=== PATIENT | male | born 1935 | race Caucasian/White ===

== ENCOUNTER 2017-01-06 15:25 | Inpatient (IN) | payer OTHER ==
[2017-01-06] MEDS ORDERED: ASPIRIN 81 MG CHEWABLE TAB PO ONE (15:36)
--- NOTE | 2017-01-06 15:38 | CPEKG ---
Heart Rate: 62 RR Interval: 968 P-R Interval: 160 QRSD Interval: 76 QT Interval: 420 QTC Interval: 427 P Delton: 32 QRS Delton: 10 T Wave Delton: 104 EKG Severity - ABNORMAL ECG - EKG Impression: SINUS RHYTHM EKG Impression: MULTIPLE VENTRICULAR PREMATURE COMPLEXES EKG Impression: LVH WITH SECONDARY REPOLARIZATION ABNORMALITY Electronically Signed By: Mary Lin 06-Jan-2017 22:38:28
[2017-01-06 15:48] LABS: % IMMATURE GRANULYOCYTES 0.1 % (0.0-1.1); ABSOLUTE IMMATURE GRANULOCYTES 0.01 10^3/uL (0.00-0.10); ADD DIFF? NO; ADD MORPH? NO; ADD SCAN? NO; ATYPICAL LYMPHOCYTE FLAG 0 (0-99); FRAGMENT RBC FLAG 0 (0-99); HEMATOCRIT 41.6 % (40.0-51.0); LEFT SHIFT FLG 0 (0-99); LIPEMIA HEMOLYSIS FLAG 90 (0-99); MEAN CELL HEMOGLOBIN 32.1 pg (27.9-34.1); MEAN CELL HEMOGLOBIN CONCENTR. 36.1 g/dL (32.4-36.7); MEAN CELL VOLUME 88.9 fL (81.5-99.8); MEAN PLATELET VOLUME 9.8 fL (8.7-11.7); PLATELET CLUMPS FLAG 10 (0-99); PLATELET COUNT 139 10^3/uL (150-400); RED BLOOD CELL COUNT 4.68 10^6/uL (4.40-6.38); RED CELL DISTRIBUTION WIDTH 12.6 % (11.5-15.2)
--- NOTE | 2017-01-06 15:49 | EDPHY ---
H & P Stated Complaint: chest pressure Time Seen by Provider: 01/06/17 15:28 HPI/ROS: CHIEF COMPLAINT: Chest pain History by patient HISTORY OF PRESENT ILLNESS: 81-year-old man with a remote history of WI and history of high cholesterol presents complaining of intermittent episodes of exertional pressure-like chest pain. He says over the past few weeks when he rides his bike, particularly up hill or other heavy work loads he gets the pressure feeling on the central left part of his chest which is associated with some shortness of breath but no diaphoresis or nausea or left arm pain. Pain typically goes away after rest. Yesterday he had episode which forced him to get off his bike and walk the bike up hill. Can't remember what kind of symptoms he had with his prior heart attack. He quit smoking almost 60 years ago. He does take medicine for his cholesterol. He takes an aspirin a day but did not take 1 today. He denies any associated leg swelling. He is currently asymptomatic. He decided to seek medical attention today because he has several long bike rides planned next week and he wants to make sure he is okay. REVIEW OF SYSTEMS: As in HPI, and all other systems reviewed and are negative Source: Patient - Personal History Tetanus Vaccine Date: 2009 - Medical/Surgical History Other PMH: WI 40 years ago - Physical Exam Exam: General Appearance: Alert, elderly, pleasant. Eyes: Pupils equal and round no pallor or injection. ENT, Mouth: Mucous membranes moist. Respiratory: Normal, effort, There are no retractions, lungs are clear to auscultation. Cardiovascular: Regular rate and rhythm. No S1, S2, murmurs gallops rubs appreciated Gastrointestinal: Abdomen is soft and nontender, no masses, bowel sounds normal. Neurological: Awake, alert and oriented x 3, no pronator drift, normal gait, no pronator drift Skin: Warm and dry, no rashes. Musculoskeletal: Neck is supple nontender. Extremities are symmetrical, full range of motion. Psychiatric: Patient has normal affect, there is no agitation. Constitutional: Initial Vital Signs Temperature (C) 36.8 C 01/06/17 15:34 Heart Rate 63 01/06/17 15:34 Respiratory Rate 16 01/06/17 15:34 Blood Pressure 157/75 H 01/06/17 15:34 O2 Sat (%) 95 01/06/17 15:34 O2 Delivery Mode Room Air Allergies/Adverse Reactions: cyclobenzaprine [From Flexeril] Allergy (Verified 01/06/17 17:24) haloperidol [From Haldol] Allergy (Verified 01/06/17 17:23) methocarbamol [From Robaxin] Allergy (Verified 01/06/17 17:24) Home Medications: Medication Instructions Recorded Aspirin EC [Aspirin EC 81 mg (*)] 81 mg PO DAILY 01/06/17 Cholecalciferol Vit D3 [Vitamin D3 1,000 units PO DAILY 01/06/17 (*)] Herbals/Supplements -Info Only 1 ea PO DAILY 01/06/17 Levothyroxine [Synthroid 50 mcg 50 mcg PO DAILY06 01/06/17 (*)] Lovastatin 40 mg PO HS 01/06/17 Multivitamins [Multivitamin (*)] 1 each PO DAILY 01/06/17 Nitroglycerin [Nitrostat 0.4 mg 0.4 mg SL AD PRN 01/06/17 (*)] clonazePAM [klonoPIN (*)] 1 mg PO HS 01/06/17 Medical Decision Making - Diagnostics Imaging Results: Imaging Impressions Chest X-Ray 01/06/17 15:44 Impression: Hyperexpanded lungs suggesting COPD. ED Course/Re-evaluation: 81-year-old man presents with exertion chest pain concerning for cardiac angina. Patient was asymptomatic in the emergency department. He was given he an aspirin. Initial ECG showed normal sinus rhythm at a rate of 60 with diffusely flattened T-waves and ST segment depressions in the lateral leads concerning for ischemia but no evidence of STEMI. Chest x-ray was obtained which showed nothing acute. Labs were notable for elevated troponin consistent with acute non-STEMI. I discussed the case with William at nurse practitioner civil engineering professional for cardiology who discussed the case with Dr. Grajeda. Patient was started on IV heparin drip and given metoprolol 12.5 mg per Cardiology. Cardiology requested transfer for angiogram at this evening. I discussed the lab results and diagnosis with the patient and also with his over the phone. The patient was transferred to the main hospital for further evaluation and treatment. Total critical care time was 35 minutes, exclusive of procedures. - Data Points Laboratory Results: Laboratory Results 01/06/17 15:42 01/06/17 15:42 01/06/17 01/06/17 01/06/17 15:42 15:42 15:40 WBC 7.40 10^3/uL 10^3/uL (3.80-9.50) RBC 4.68 10^6/uL 10^6/uL (4.40-6.38) Hgb 15.0 g/dL g/dL (13.7-17.5) Hct 41.6 % % (40.0-51.0) MCV 88.9 fL fL (81.5-99.8) MCH 32.1 pg pg (27.9-34.1) MCHC 36.1 g/dL g/dL (32.4-36.7) RDW 12.6 % % (11.5-15.2) Plt Count 139 10^3/uL L 10^3/uL (150-400) MPV 9.8 fL fL (8.7-11.7) Neut % (Auto) 68.8 % % (39.3-74.2) Lymph % (Auto) 21.2 % % (15.0-45.0) [place] % (Auto) 5.5 % % (4.5-13.0) Eos % (Auto) 3.6 % % (0.6-7.6) Baso % (Auto) 0.8 % % (0.3-1.7) Nucleat RBC Rel Count 0.0 % % (0.0-0.2) Absolute Neuts (auto) 5.08 10^3/uL 10^3/uL (1.70-6.50) Absolute Lymphs (auto) 1.57 10^3/uL 10^3/uL (1.00-3.00) Absolute Monos (auto) 0.41 10^3/uL 10^3/uL (0.30-0.80) Absolute Eos (auto) 0.27 10^3/uL 10^3/uL (0.03-0.40) Absolute Basos (auto) 0.06 10^3/uL 10^3/uL (0.02-0.10) Absolute Nucleated RBC 0.00 10^3/uL 10^3/uL (0-0.01) Immature Gran % 0.1 % % (0.0-1.1) Immature Gran # 0.01 10^3/uL 10^3/uL (0.00-0.10) PT 13.0 SEC SEC (12.0-15.0) INR 1.01 (0.83-1.16) APTT 30.8 SEC SEC (23.0-38.0) Sodium 142 mEq/L mEq/L (134-144) Potassium 3.9 mEq/L mEq/L (3.5-5.2) Chloride 102 mEq/L mEq/L (97-110) Carbon Dioxide 28 mEq/l mEq/l (22-31) Anion Gap 12 mEq/L mEq/L (8-16) BUN 13 mg/dL mg/dL (7-23) Creatinine 1.2 mg/dL mg/dL (0.7-1.3) Estimated GFR 58 Glucose 89 mg/dL mg/dL (70-100) Calcium 8.8 mg/dL mg/dL (8.5-10.4) Magnesium 1.9 mg/dL mg/dL (1.6-2.3) Troponin I 0.629 ng/mL H ng/mL (0-0.034) Medications Given: Discontinued Medications Aspirin (Aspirin) 324 mg PO EDNOW ONE Stop: 01/06/17 15:37 Last Admin: 01/06/17 15:41 Dose: 324 mg Clopidogrel Bisulfate (Plavix) 600 mg PO ONCE ONE Stop: 01/06/17 20:24 Last Admin: 01/06/17 21:44 Dose: Not Given Heparin Sodium (Porcine) (Heparin Injection) 0 unit IVP EDNOW ONE PRN Reason: Protocol Stop: 01/06/17 16:54 Last Admin: 01/06/17 17:30 Dose: 3,700 units Heparin Sodium (Porcine) (Heparin 50 Units/Ml (Premix)) 500 mls @ 0 mls/hr IV EDNOW ONE; Per Protocol PRN Reason: Protocol Stop: 01/06/17 16:54 Last Admin: 01/06/17 17:32 Dose: 500 mls Metoprolol Succinate (Toprol Xl) 12.5 mg PO EDNOW ONE Stop: 01/06/17 17:20 Last Admin: 01/06/17 17:38 Dose: 12.5 mg Departure - Departure Disposition: [facility] Clinical Impression: Acute coronary syndrome Condition: Fair
[2017-01-06 16:00] LABS: ANION GAP 12 mEq/L (8-16); CALCIUM 8.8 mg/dL (8.5-10.4); CARBON DIOXIDE 28 mEq/l (22-31); CHLORIDE 102 mEq/L (97-110); CREATININE 1.2 mg/dL (0.7-1.3); GLOMERULAR FILTRATION RATE 58; GLUCOSE 89 mg/dL (70-100); MAGNESIUM 1.9 mg/dL (1.6-2.3); POTASSIUM 3.9 mEq/L (3.5-5.2); SODIUM 142 mEq/L (134-144)
[2017-01-06 16:12] LABS: TROPONIN I 0.629 ng/mL (0-0.034)
[2017-01-06] MEDS ORDERED: HEPARIN/DEXTROSE 500 ML IV ONE (16:53)
[2017-01-06] MEDS ORDERED: HEPARIN 10,000 UNIT/10 ML MDV IVP ONE (16:53)
[2017-01-06 17:01] LABS: INR 1.01 (0.83-1.16)
[2017-01-06 17:02] LABS: APTT 30.8 SEC (23.0-38.0)
[2017-01-06] MEDS ORDERED: LIDOCAINE 1% 300 MG/30 ML SDV ONE (17:10)
[2017-01-06] MEDS ORDERED: IOPAMIDOL (ISOVUE-370) 150 ML BTL IV ONE ×2 (17:11→17:28)
[2017-01-06] MEDS ORDERED: MIDAZOLAM 2 MG/2 ML VIAL ONE (17:11)
[2017-01-06] MEDS ORDERED: HEPARIN 10,000 UNIT/10 ML MDV ONE (17:11)
[2017-01-06] MEDS ORDERED: fentaNYL 100 MCG/2 ML INJ ONE (17:11)
[2017-01-06] MEDS ORDERED: VERAPAMIL 5 MG/2 ML VIAL ONE (17:11)
[2017-01-06] MEDS ORDERED: METOPROLOL SUCCINATE XR 25 MG TAB PO ONE (17:19)
[2017-01-06] MEDS ORDERED: METOPROLOL TARTRATE 25 MG TAB ONE (17:36)
[2017-01-06] MEDS ORDERED: NITROGLYCERIN 1,500 MCG/15 ML VIAL MISC ONE (19:36)
[2017-01-06] MEDS ORDERED: BIVALIRUDIN 250 MG/5 ML VIAL IV ONE (19:37)
[2017-01-06] MEDS ORDERED: CLOPIDOGREL BISULFATE 75 MG TAB ONE (20:21)
[2017-01-06] MEDS ORDERED: HYDROCODONE/APAP 5/325 TAB PO PRN (20:23)
[2017-01-06] MEDS ORDERED: TEMAZEPAM 15 MG CAP PO PRN (20:23)
[2017-01-06] MEDS ORDERED: ACETAMINOPHEN 325 MG TAB PO PRN (20:23)
[2017-01-06] MEDS ORDERED: ONDANSETRON DISINTEGRATING 4 MG TAB PO PRN (20:23)
[2017-01-06] MEDS ORDERED: LORazepam 2 MG/ML INJ IVP PRN (20:23)
[2017-01-06] MEDS ORDERED: ATROPINE SULFATE 1 MG/10 ML SYR IVP PRN (20:23)
[2017-01-06] MEDS ORDERED: NITROGLYCERIN 0.4 MG BTL SL PRN (20:23)
[2017-01-06] MEDS ORDERED: CLOPIDOGREL BISULFATE 75 MG TAB PO ONE (20:23)
[2017-01-06] MEDS ORDERED: ONDANSETRON 4 MG/2 ML VIAL IVP PRN (20:23)
[2017-01-06] MEDS ORDERED: NS 1,000 ML IV SCH (20:30)
--- NOTE | 2017-01-06 20:45 | GHP ---
[f rep st] HISTORY AND PHYSICAL DATE OF ADMISSION: 01/06/2017 CHIEF COMPLAINT: Chest pain. 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 He presente d to the emergency department for a complaint of chest discomfort which began sometime within the la st 2 weeks to 1 month. He states that with riding his bike uphill he has developed chest pressure a nd tightness between his nipples that is associated with some shortness of breath. He cannot tell i f this discomfort is being caused by his heart or primary problem with his lungs. He has not recent ly traveled. Yesterday, he was riding up a hill and the discomfort became so severe, he was forced to get off his bike and walk it up the remainder of the hill. PAST MEDICAL HISTORY: Significant for heart attack that occurred when he was in his early 50s and w as treated at the [facility]. He is a former smoker but quit 60 years ago. He has a history of hypercholesterolemia and takes medication for that problem. Past medical history significant for prior myocardial infarction and hypercholesterolemia. He denies a history o f diabetes, but does admit to hypothyroidism. He has had a history of melanoma, status post excisio n, and has also developed some problems with his memory and feels he may have early Alzheimer's or s ome other form of cognitive disorder. CURRENT MEDICATIONS: Aspirin 81 mg daily, atorvastatin, Lipitor 40 mg daily, glucosamine sulfate, l evothyroxine 50 mcg daily, nitroglycerin as needed, Metamucil 5.85 g p.o. daily and Klonopin 1 mg p. o. daily. ALLERGIES: He has a history of allergy to cyclobenzaprine, Flexeril, haloperidol and methocarbamol. PHYSICAL EXAMINATION: GENERAL: He appears awake and alert. He is oriented to person and place, be ing a hospital. Does not know today's date. NECK: Reveals no JVD. Does have a faint carotid brui t on the right side. HEART: Normal S1, S2 with a systolic murmur consistent with tricuspid regurgi tation. He also has a summation gallop sound. LUNGS: Clear with decreased air movement bilaterall y. ABDOMEN: Benign with positive bowel sounds. It is nondistended and nontender. EXTREMITIES: W arm, dry and well perfused without significant peripheral edema. His femoral pulses are intact. DIAGNOSTIC STUDIES: EKG reveals sinus rhythm with frequent and bigeminal PVCs. There is a nonspeci fic ST-T abnormality with diffuse T-wave flattening and no acute infarct pattern is identified. LABORATORY DATA: His troponin was elevated and creatinine was recorded 1.2. BUN and creatinine wer e 13 and 1.2. As I mentioned, blood glucose is 89. White count 7.4, hemoglobin and hematocrit 15 a nd 41.6, platelet count of 139. Troponin I is 0.629 ng/mL. DIAGNOSIS: Unstable angina with subendocardial myocardial infarction by troponin. The patient, Shelly masterson, would benefit from urgent, if not emergent, cardiac catheterization given his complex ventri cular ectopy, stuttering pattern of chest discomfort and elevated troponin. I discussed the risks, benefits, and alternatives of this course of action with the patient who understands, willing to pro ceed as planned. /[id number]/MODL
[2017-01-06] MEDS: METOPROLOL TARTRATE 25 MG TAB PO SCH (21:39)
--- NOTE | 2017-01-06 22:14 | CPEKG ---
Heart Rate: 55 RR Interval: 1091 P-R Interval: 180 QRSD Interval: 78 QT Interval: 464 QTC Interval: 444 P Mcconnells: 70 QRS Mcconnells: 5 T Wave Mcconnells: 58 EKG Severity - ABNORMAL ECG - EKG Impression: SINUS RHYTHM EKG Impression: MULTIPLE VENTRICULAR PREMATURE COMPLEXES Electronically Signed By: Rajesh Huizar 07-Jan-2017 12:22:47
[2017-01-07 05:38] LABS: % IMMATURE GRANULYOCYTES 0.4 % (0.0-1.1); ABSOLUTE IMMATURE GRANULOCYTES 0.03 10^3/uL (0.00-0.10); ADD DIFF? NO; ADD MORPH? NO; ADD SCAN? NO; ATYPICAL LYMPHOCYTE FLAG 0 (0-99); FRAGMENT RBC FLAG 0 (0-99); HEMATOCRIT 40.4 % (40.0-51.0); HEMOGLOBIN 14.4 g/dL (13.7-17.5); LEFT SHIFT FLG 0 (0-99); LIPEMIA HEMOLYSIS FLAG 90 (0-99); MEAN CELL HEMOGLOBIN 32.1 pg (27.9-34.1); MEAN CELL HEMOGLOBIN CONCENTR. 35.6 g/dL (32.4-36.7); MEAN PLATELET VOLUME 10.5 fL (8.7-11.7); PLATELET CLUMPS FLAG 20 (0-99); PLATELET COUNT 114 10^3/uL (150-400); RED BLOOD CELL COUNT 4.49 10^6/uL (4.40-6.38); RED CELL DISTRIBUTION WIDTH 12.4 % (11.5-15.2)
--- NOTE | 2017-01-07 06:06 | CPIP ---
[f rep st] INVASIVE CARDIAC PROCEDURE DATE OF PROCEDURE: 01/06/2017 PROCEDURE PERFORMED: 1. Selective coronary angiography. 2. Left heart catheterization. 3. Left ventriculogram. 4. Percutaneous transluminal coronary angioplasty and stent placement of the circumflex obtuse roxanne inal with the use of a 2.75 x 28 Synergy drug-eluting stent. 5. Angio-Seal arteriotomy repair. COMPLICATIONS: None. INDICATIONS/APPROPRIATE USE CRITERIA: The patient has [place] Heart Association class 3 symptoms o f heart failure and CCS class 3 symptoms of angina with elevated troponin consistent with a subendoc ardial myocardial infarction. PROCEDURE IN DETAIL: After informed consent was obtained, n.p.o. status was confirmed, the region o f the right groin was cleaned, prepped and draped in sterile fashion. Modified Seldinger technique was used to place a 6-Portuguese sheath to the right common femoral artery. The patient then underwent the previously mentioned diagnostic procedure with the use of a JL4 and JR4 coronary catheters, as w ell as a 6-Portuguese pigtail catheter. Standard wire exchange technique was utilized for all catheter exchanges. The left main coronary lumen was approximately 5 mm in size and bifurcates into an LAD and circumfle x system. The circumflex vessel has a 50% ostial obstruction and gives rise to a posterolateral tyrone tricular branch. The largest obtuse marginal branch reveals ZOHAIB-1 flow with a 99% obstruction with haziness consistent with a fresh thrombus. The LAD arises in its usual location and has diffuse thien derrick irregularity proximally, maximal luminal stenosis approximately 30%. There is ZOHAIB-3 flow to a distal and apical LAD. No flow-limiting obstruction of the LAD proper diagonal or septal circulat ion is identified. The right coronary artery is dominant giving rise to a posterior descending and posterolateral ventricular branch. Again luminal irregularity consistent with underlying atheroscle rosis is present. Maximal luminal stenosis approximately 40% just prior to an acute marginal branch . Collateral flow from the right to the left system is not identified. The patient underwent left heart catheterization demonstrating an elevated left ventricular end-savage tolic pressure measured at 24 mmHg. The patient underwent left ventriculogram in the ZAMORA projection , demonstrating preserved left ventricular systolic function. Ejection fraction 65% with basal infe rior hypokinesis. Visualized portion of the thoracic aorta is normal in caliber without josey disse ction or aneurysm. There were 3 sinuses of Valsalva most consistent with a trileaflet aortic valve. Because of some leak around the 6-Portuguese sheath, a 6-Portuguese sheath was upsized to a 7-Portuguese sheath. A 7-Portuguese 3.5 EBU catheter was used for guide catheter support. A 0.014 coronary intuition wire was advanced under direct fluoroscopic guidance across the lesion in question. It was ballooned ope n with a 2.0 x 12 lesion in question. There was evidence of ZOHAIB-0 flow after placement of the wire indicating just how severe the blockage was known to be. The vessel was then ballooned open with a 2.0 x 12 balloon followed by secondary stenting with a 2.75 x 28 Synergy drug-eluting stent deploye d at a maximum pressure of 12-14 atmospheres with excellent angiographic results, 0% residual stenos is status post PTCA and stent placement with excellent and ZOHAIB-3 flow into the distal vessel post b alloon angioplasty and stent implantation. Patient tolerated the procedure well and underwent a suc cessful Angio-Seal arteriotomy repair. IMPRESSION: Successful balloon angioplasty and stent implantation for indication of subendocardial myocardial infarction. /[id number]/MODL
[2017-01-07 06:15] LABS: ALBUMIN 3.2 g/dL (3.5-5.0); ANION GAP 8 mEq/L (8-16); ASPARTATE AMINOTRANSFERASE 31 IU/L (17-59); BILIRUBIN,TOTAL 1.1 mg/dL (0.1-1.4); CALCIUM 9.1 mg/dL (8.5-10.4); CARBON DIOXIDE 24 mEq/l (22-31); CHLORIDE 105 mEq/L (97-110); CREATININE 1.2 mg/dL (0.7-1.3); GLOMERULAR FILTRATION RATE 58; GLUCOSE 81 mg/dL (70-100); LACTATE DEHYDROGENASE 381 IU/L (313-618); MAGNESIUM 1.9 mg/dL (1.6-2.3); SODIUM 137 mEq/L (134-144)
[2017-01-07 07:49] LABS: CREATINE KINASE-MB FRACTION 4.19 ng/mL (0-3.19)
[2017-01-07 08:28] LABS: CK-MB INTERPRETATION POSITIVE (NEGATIVE)
[2017-01-07] MEDS ORDERED: CLOPIDOGREL BISULFATE 75 MG TAB PO SCH (09:00)
[2017-01-07] MEDS ORDERED: ASPIRIN EC 325 MG TAB PO SCH (09:00)
[2017-01-07] MEDS ORDERED: ATORVASTATIN CALCIUM 40 MG TAB PO SCH (09:00)
[2017-01-07] MEDS: METOPROLOL TARTRATE 25 MG TAB PO SCH (09:12)
--- NOTE | 2017-01-07 09:47 | CPEKG ---
Heart Rate: 66 RR Interval: 909 P-R Interval: 164 QRSD Interval: 74 QT Interval: 428 QTC Interval: 449 P Pyrites: 53 QRS Pyrites: 25 T Wave Pyrites: -62 EKG Severity - ABNORMAL ECG - EKG Impression: SINUS RHYTHM Electronically Signed By: Heri Fisher 07-Jan-2017 15:39:15
[2017-01-07 11:58] VITALS: TEMP 97.9
[2017-01-07 16:24] VITALS: BP 129/69; PULSE 56; RESP 18; O2SAT 95
--- NOTE | 2017-01-09 05:21 | GDS ---
[f rep st] DISCHARGE SUMMARY ADMITTING DIAGNOSES: 1. Chest pain. 2. Subendocardial myocardial infarction. 3. Early-onset Alzheimer's. DISCHARGE DIAGNOSES: 1. Subendocardial myocardial infarction. 2. Coronary artery disease with stent placed to the circumflex obtuse marginal. 3. Early-onset Alzheimer's. HOSPITAL COURSE: This gentleman presented to the emergency room on January 06, 2017, with complaint of chest pain that has been waxing and waning over the past 2 weeks to 1 month. He has noted it while out riding his bike. On January 05, 2017, he experienced severe chest pain while riding his bike up h ill and presented to the emergency room for evaluation. His initial EKG showed a regular sinus rhyt hm with frequent PVCs, nonspecific ST/T-wave abnormalities with diffuse T-wave flattening. There wa s no acute infarct pattern. His troponin was 0.629. Dr. Grajeda evaluated him and took him to the psychiatric labor/excavator where he did find obstructive disease in the circumflex OM and a drug-eluting Synerg y stent was placed with no complications. He then was taken to PCU for overnight evaluation where marcello hamm has done well. He has experienced some confusion, likely related to his early onset Alzheimer's. His has been at his side and is very supportive and understanding of his confusion episodes. He was evaluated by PT/OT with recommendation for neurological consult due to his confusion. Clint schilling, after speaking with his , he has had a neurological consult 1 year ago. She does agree to diaz ve him seen by his primary care physician, again, and have him re-evaluated for the degree of Alzhei kendell's at this time. His groin site is intact with no bleeding. Groin care instructions were review ed at length with his and with him. His does have a good understanding and knows to watch for bleeding and to avoid heavy lifting, pushing, pulling for 1 week. His feels completely se cure about taking him home and caring for him. She is asked to call our office, should she have any concerns about any chest discomfort or unusual symptoms. At this time, he currently is stable for discharge. ALLERGIES: He is allergic to cyclobenzaprine, haloperidol, methocarbamol. MEDICATIONS: Plavix 75 mg daily; aspirin enteric coated 325 mg daily; Tylenol 325 mg 1-2 tablets ev marci 4 hours as needed for pain, not to exceed 3 g daily; metoprolol tartrate 12.5 mg b.i.d.; levothy roxine 50 mcg daily; multivitamin 1 daily; Klonopin 1 mg at bedtime; lovastatin 40 mg at bedtime, Ni trostat 0.4 mg sublingual as needed for pain; vitamin D 1,000 units daily; herbal supplements 1 neida y. PHYSICAL EXAMINATION: VITAL SIGNS: On day of discharge, blood pressure 129/69, heart rate 56 and r egular, oxygen saturation 95%, temperature 36.6 Celsius. EKG showed a normal sinus rhythm with no a rrhythmias. HEART: Rate regular. No murmurs, rubs, gallops. LUNG SOUNDS: Clear to auscultation. No wheezes, rales, or rhonchi. Peripheral pulses are 2+ bilaterally with no edema. Right groin s ite is intact with no bleeding, induration, or pain. Very mild ecchymosis was noted at site. DISCHARGE PLAN: 1. He will follow up in 1 week at [facility] with Marycruz Booth, nurse practitioner. 2. Groin site precautions, including no heavy lifting, pushing, pulling for 1 week; no tub bath for 1 week. 3. Should the groin site bleed, he is to hold heavy pressure continuously and go to the [facility]. His does understand these instructions. 4. He is to keep his bowels soft to avoid bearing down over the next week. He can safely take Seno forrest, if needed. 5. He is asked to call [facility], should he have any chest discomfort, shortness of breath, or other cardiac concerns. His understands clearly these instructions. The patient admits that a t times he feels confused and will rely on his for discharge instructions to [facility]. It is recommended that he participate in cardiac rehab. At this time, he currently is stable for discharge. /[id number]/MODL
== END 2017-01-07 17:42 | disposition home or self-care (01) | DRG 229 ==
LOC: CED 15:25 → F2W 16:30 → CED 18:25 → OBSVTOIN 20:19 → F2W 21:10
PROVIDERS: ADMIT Internal Medicine Cardiovascular Disease; ATTEND Internal Medicine Cardiovascular Disease
DX: I21.4 Non-ST elevation (NSTEMI) myocardial infarction (principal); I25.110 Atherosclerotic heart disease of native coronary artery with unstable angina pectoris; I10 Essential (primary) hypertension; G30.0 Alzheimer's disease with early onset; F02.80 Dementia in other diseases classified elsewhere, unspecified severity, without behavioral disturbance, psychotic disturbance, mood disturbance, and anxiety
CPT/HCPCS: 71020-PO; 80048-PO; 83735-PO; 84484-PO; 85025-PO; 85610-PO; 85730-PO; 96365; 97161-GP; 97165-GO; C1725; C1760; C1769; C1874; C1887; C9606; G8987-GO-CI; G8988-GO-CI; G8989-GO-CI; J0583; J1644; J2250; J3010; Q9967

== ENCOUNTER → 2017-04-09 | Outpatient (CLI) | payer OTHER | LOC: SBRMNEURO 21:00 | PROVIDERS: ATTEND Physician Assistant Medical | DX: G47.33 Obstructive sleep apnea (adult) (pediatric) (principal); G47.52 REM sleep behavior disorder; G47.61 Periodic limb movement disorder ==

== ENCOUNTER 2017-12-31 17:49 | Emergency (ER) | payer OTHER ==
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
[2017-12-31 19:20] VITALS: BP 151/78
== END 2017-12-31 19:21 | disposition home or self-care (01) ==
LOC: CED 17:49
DX: S01.21XA Laceration without foreign body of nose, initial encounter (principal); I25.2 Old myocardial infarction; Z79.82 Long term (current) use of aspirin; Z87.891 Personal history of nicotine dependence; V18.0XXA Pedal cycle driver injured in noncollision transport accident in nontraffic accident, initial encounter; Y99.8 Other external cause status; Y93.55 Activity, bike riding
CPT/HCPCS: 70160-PO; 70450-PO; 72125-PO